=== PATIENT | female | born 1960 | race Caucasian/White ===

== ENCOUNTER 2017-12-14 18:11 | Observation (INO) ==
[2017-12-14] MEDS ORDERED: Naloxone 0.4 MG/ML INJ IVP PRN (18:28)
--- NOTE | 2017-12-14 18:55 | Internal Med History&Physical ---
Date of Encounter: 12/14/17 Time of Encounter: 18:42 Internal Medicine - H&P: HPI Chief complaint: Anemia and Planned right foot surgery Admitted From: Home Plans for Post Hospital Care: Home History of present illness: Ms. Pascual is a 57 year old female who presents with a history of heart failure, DM, Mi in 2000 with first stent placement, then 3 more stents from 2001 to 2006. She is here for blood transfusion prior to her foot surgery tomorrow with podiatry. The patient hgb was 7.7 on 12/10/2017. The plan is to transfuse 2 units PRBC's, however will get stat cbc, bmp, type and cross, and pt/inr at this time. The patient is in the room and comfortable. She indicated that she did receive cardiac clearance for this surgery on a outpatient basis and was cleared by Dr Clark. She indicated that Dr. Alcantar' AUDIO VISUAL MANAGER was aware of the clearance. If validation is needed please call Dr. Clark's office @ in am. Consult placed for podiatry, will follow the patient and all surgical aspects. The patient baseline hgb seems to be around 10.2. The last two hgb's were 7.3 and 7.7, prior to 11/23/2017 hgb was in the 10's. Hgb is 7.1, will transfuse 2 units and get iron studies. Apparently she broke her right foot 2 years ago and 2 rods were placed. Foot xray from 11/10/2015 showed: status post arthrodesis of the 1st interphalangeal joint with fracture of the arthrodesis screw securing the interphalangeal joint and subacute to chronic 4th metatarsal fracture status post ORIF. Malleable plate is approximately 5 mm off of the cortex of the metatarsals suggesting hardware failure and loosening. Pedal pulses 2+ posterior tibia and dorsalis pedis both feet. Color wnl. 12 lead ekg completed, Sinus rhythm rate 71, nonspecific ST and Twave abnormailty, it was similar to old ekgs from 07/2017. Past Med Surg Social Fam HX - Past Medical History Medical history: coronary artery disease, diabetes, GERD, hypertension, thyroid disease, other Additional medical history: dm. anastasia. home O2. gerd. CAD. PTSD. COPD. HTN. HYPOTHYROIDISM. ANEMIA. HIGH CHOLESTEROL. HEART STENTS Psychiatric history: PTSD - Past Surgical History Surgical History: hysterectomy, knee replacement, other Additional surgical history: hysterectomy. rosa. right TKR. T&A - Social History Smoking Status: Former smoker Smokeless Tobacco Status: No Alcohol use: none Drug use: none Internal Medicine - H&P: Meds Aripiprazole [Abilify] 5 mg PO DAILY 07/13/17 [History] Aspirin [Lo-Dose Aspirin EC] 81 mg PO DAILY 07/13/17 [History] Atorvastatin Calcium [Lipitor] 80 mg PO HS 07/13/17 [History] Clopidogrel [Plavix] 75 mg PO DAILY 07/13/17 [History] Ferrous Sulfate [Iron] 325 mg PO DAILY 07/13/17 [History] Furosemide [Lasix] 40 mg PO DAILY 07/13/17 [History] Gabapentin [Neurontin] 400 mg PO QID 07/13/17 [History] Levothyroxine [Synthroid] 50 mcg PO 0630 07/13/17 [History] Loratadine [Allergy Relief] 10 mg PO DAILY 07/13/17 [History] Metoprolol Succinate 25 mg PO HS 07/13/17 [History] Nitroglycerin 0.3 mg SL Q5MIN PRN 07/13/17 [History] Pantoprazole Sodium [Protonix] 40 mg PO DAILY 07/13/17 [History] Pramipexole Di-HCl [Pramipexole Dihydrochloride] 1.5 mg PO HS 07/13/17 [History] Quetiapine Fumarate [Seroquel] 200 mg PO HS 07/13/17 [History] metFORMIN [Glucophage] 500 mg PO DAILY 07/13/17 [History] Calcium Carbonate/Vitamin D3 [Calcium 500 + Vit D 200 Caplet] 1 tab PO DAILY [History] Guaifenesin [Mucus Relief] 400 mg PO BID PRN 08/04/17 [History] Isosorbide MONOnitrate (24 HR) [Imdur] 60 mg PO DAILY 08/04/17 [History] Oxycodone HCl/Acetaminophen [Percocet 5-325 mg Tablet] 1 each PO Q4-6H PRN 4 Days #20 tablet 08/04/17 [Rx] Potassium Chloride [Klor-Con 10] 10 meq PO DAILY 08/04/17 [History] Sertraline [Zoloft] 100 mg PO BID 08/04/17 [History] lamoTRIgine [Lamotrigine] 200 mg PO BID 08/04/17 [History] Albuterol Sulfate [Albuterol Inhaler] 1 puff IH Q4HR PRN 09/21/17 [History] Amoxicillin 875 mg PO BID #20 tablet 09/21/17 [Rx] Budesonide [Pulmicort] 0.5 mg IH BID 09/21/17 [History] Docusate Sodium [Dok] 50 mg PO DAILY PRN 09/21/17 [History] OxyCODONE/APAP 5/325 [Percocet 5/325 MG] 1 each PO Q6HR PRN 5 Days #15 tablet [Rx] Oxygen 3 l NS CONT 09/21/17 [History] Tiotropium [Spiriva] 2 puff IH DAILY 09/21/17 [History] 3 Allergy/AdvReac Type Severity Reaction Status Date / Time codeine AdvReac Nausea Verified 11/23/17 14:39 prednisone AdvReac Hallucinati Verified 11/23/17 14:39 ng plastic tape Allergy Rash Uncoded 08/04/17 12:33 All Systems PM: A 10-system review of systems was performed and is negative for pertinent findings except as documented above in the HPI. - Constitutional Constitutional: no chills, no fever(s), no night sweats - EENT Eyes: no change in vision, no discharge, no pain, no photophobia Ears: no ear discharge, no ear pain, no tinnitus Nose, mouth and throat: no dysphagia, no nasal discharge, no neck pain, no sore throat - Cardiovascular Cardiovascular ROS IM: no chest pain, no diaphoresis, no dyspnea, no lightheadedness, no palpitations, no syncope - Respiratory Respiratory: no cough, no dyspnea, no wheezing, no excessive phlegm production - Gastrointestinal Gastrointestinal: no abdominal pain, no diarrhea, no hematemesis, no hematochezia, no melena, no nausea, no vomiting - Genitourinary Genitourinary: no change in urinary stream, no dysuria, no flank pain, no hematuria - Musculoskeletal Musculoskeletal ROS IM: other (Right foot jonathan displacement), no numbness, no tingling - Integumentary Integumentary IM: no rash, no unusual bruising - Neurological Neurological ROS: no confusion, no convulsions, no focal weakness, no numbness, no tingling, no tremor(s) - Hematologic/Lymphatic Hematologic/Lymphatic: no easy bruising - Head Head exam: Present: atraumatic, normocephalic - Eye Eye exam: Present: normal appearance, PERRL, conjuntiva pink, sclera anicteric Pupils: Present: PERRL - Neck Neck exam general surgery: Present: supple, trachea midline. Absent: lymphadenopathy - Respiratory Respiratory exam: Present: CTAB. Absent: accessory muscle use, rales, rhonchi, wheezes - Cardiovascular Cardiovascular exam: Present: RRR, +S1, +S2. Absent: diastolic murmur, gallop, rubs, systolic murmur - GI/Abdominal GI/Abdominal exam: Present: normal bowel sounds, soft, no peritoneal signs. Absent: distended, tenderness - Extremities Exam Extremities exam: Present: warm, radial pulses palpable and symmetrical. Absent : calf tenderness, cyanotic, pedal edema - Expanded Lower Extremities Exam Ankle exam: Present: tenderness (The patient rods are displaced in her right foot. Planned repair in am (12/15/2017)) - Neurological Exam Neurological exam: Present: CN II-XII intact, oriented X3, no focal deficits. Absent: pronater drift, facial droop, speech deficit - Skin Skin exam: Present: dry, intact Internal Med - H&P Results - Labs CBC & Chem 7: 12/14/17 19:28 12/14/17 19:28 - Assessment and plan (1) Anemia Current Visit: Yes Status: Acute Assessment and plan: Etiology of anemia is unknown, will get CBC, type and screen. Added iron studies to labs. Transfuse 2 units PRBC's for hgb of 7.1 Monitor daily labs Check occult stool Qualifiers: Anemia type: unspecified type Qualified Code(s): D64.9 - Anemia, unspecified (2) Hardware failure Current Visit: Yes Status: Acute Assessment and plan: Podiatry consult ordered Planned for repair/replacement of hardware in right foot in am with Dr. Alcantar. Circulation checks (3) Diabetes mellitus Current Visit: Yes Status: Acute Assessment and plan: Accu checks ac/hs with evening meal. Blood sugars q 6 hours when npo status starts Hold metformin Goal while inpt is under 200.. Qualifiers: Diabetes mellitus type: type 2 Diabetes mellitus nursing home insulin use: without nursing home use Diabetes mellitus complication status: with unspecified complications Qualified Code(s): E11.8 - Type 2 diabetes mellitus with unspecified complications (4) Heart failure Current Visit: No Status: Acute Assessment and plan: Appears controlled. Patient reported having a echocardiogram at an outside facility when she was cleared for surgery. BNP in am Qualifiers: Heart failure type: unspecified Heart failure chronicity: unspecified Qualified Code(s): I50.9 - Heart failure, unspecified (5) Hypertension Current Visit: Yes Status: Acute Assessment and plan: Bp is controlled Gave 1 dose metoprolol 12.5 mg po tonight Resume BP medications after surgery Qualifiers: Hypertension type: essential hypertension Qualified Code(s): I10 - Essential (primary) hypertension - Time Spent With Patient Total time spent is greater than 50% in coordination of care (as documented) at patient's floor/unit and/or counseling patient: 25 - 35 minutes
[2017-12-14 19:54] LABS: Basophils % 0.2 %; Red Cell Distribution Width 17.6 % (11.5-14.5)
[2017-12-14 19:55] LABS: Eosinophils % 0.2 %; Hematocrit 23.9 % (35.3-44.9); Hemoglobin 7.1 g/dL (11.5-15.4); Immature Granulocytes % 0.2 % (0-4); Lymphocytes % 14.4 %; Mean Corpuscular HGB Conc 29.7 g/dL (31.6-35.5); Mean Corpuscular Hemoglobin 24.9 pg (28.0-33.3); Mean Corpuscular Volume 83.9 fL (83.0-100.0); Mean Platelet Volume 9.6 fL (9.4-12.4); Monocytes # 0.4 K/mcL (0.0-1.3); Neutrophils # 3.4 K/mcL (1.6-8.9); Platelet Count 249 K/mcL (140-400); Red Blood Count 2.85 M/mcL (3.82-4.97)
[2017-12-14 19:59] LABS: Lymphocytes # 0.7 K/mcL (0.6-4.6)
[2017-12-14 20:07] LABS: BUN/Creatinine Ratio 16 (6-26); Blood Urea Nitrogen 10 mg/dL (6-20); Calcium 8.8 mg/dL (8.6-10.3); Carbon Dioxide 24 mEq/L (23-29); Chloride 104 mEq/L (98-107); Glucose 196 mg/dL (70-105); Osmolality,Calculated 288 (280-300); Potassium 3.9 mEq/L (3.5-5.1); Sodium 137 mEq/L (136-145); eGFR For African Americans > 60 (> 60); eGFR For Non-African Americans > 60 (> 60)
[2017-12-14 20:09] LABS: INR 1.1; Prothrombin Time 11.8 Seconds (9.4-12.1)
--- NOTE | 2017-12-14 20:26 | Event Note ---
Date of Encounter: 12/14/17 Time of Encounter: 20:19 Patient was seen and examined. I agree with the H&P as written by Susan Lua NP Briefly the patient is with an extensive cardiac history that includes CABG as well as 4 stents, diabetes, COPD on chronic O2 who is here for blood transfusion prior to podiatry surgery involving her right big toe fractured arthrodesis. The patient's hemoglobin was noted to be around 7. Her hemoglobin was around 10-11 earlier this year. The patient had colonoscopy a year ago at the [facility] and she tells me was unremarkable. The patient says that she had clearance from cardiology for this surgery a couple weeks ago with her regular stripper opaquer, Dr. Clark, in [place]. She says Dr. Rivera's office aware that she is cleared for surgery. She had an echo done at that time which we do not have results of. She does not seem to be in heart failure currently. She seems clinically euvolemic. The patient reports chronic shortness of breath as well as fatigue and increased sleepiness. She denies any bleeding episodes. She denies any hematemesis, melena, hematochezia. A/Ox3, NAD RRR. S1, s2, No m/r/g dimished but CTAB Abdomen distended, abdominal hernia noted. Nontender No edema. 2+ DP Nonfocal Admit to hospitaltist. Hgb 7.1 here. Will give 2 units check iron studies No need to repeat and echo as it was done recently. Patient was cleared for surgery reportedly. Dr. Alcantar can request clearance if he feels the patient is not cleared for surgery but the patient states that she was cleared by her stripper opaquer EKG sliding scale insulin O2 support DVT ppx.
[2017-12-14 20:29] LABS: Anisocytosis 1+ (Not Present); Hypochromasia Present (Not Present); Platelet Estimate Normal (Normal)
[2017-12-14] MEDS ORDERED: Metoprolol XL (24 HR) Succ 25 MG TAB.ER.24H PO SCH (21:00)
[2017-12-14 21:23] LABS: % Iron Saturation 5 % (15-50); Iron 26 mcg/dL (50-170); Transferrin 342 mg/dL (203-362)
[2017-12-14] MEDS: 0.9 % Sodium Chloride 1,000 ML IVC SCH (21:25)
[2017-12-14] MEDS: Gabapentin 400 MG CAPSULE PO SCH (21:25)
[2017-12-14] MEDS: lamoTRIgine 100 MG TABLET PO SCH (21:25)
[2017-12-14] MEDS ORDERED: 0.9 % Sodium Chloride 250 ML ONE (22:08)
[2017-12-14] MEDS ORDERED: Acetaminophen 325 MG TABLET PO ONE (23:01)
[2017-12-14] MEDS: Budesonide Neb 0.5 MG/2 ML IH SCH (23:02)
[2017-12-15] MEDS ORDERED: 0.9 % Sodium Chloride 250 ML ONE (02:30)
[2017-12-15 07:09] LABS: Hematocrit 28.7 % (35.3-44.9); Hemoglobin 8.5 g/dL (11.5-15.4); Immature Granulocytes % 0.2 % (0-4); Lymphocytes # 0.5 K/mcL (0.6-4.6); Lymphocytes % 13.1 %; Mean Corpuscular HGB Conc 29.6 g/dL (31.6-35.5); Mean Corpuscular Hemoglobin 24.8 pg (28.0-33.3); Mean Corpuscular Volume 83.7 fL (83.0-100.0); Monocytes # 0.4 K/mcL (0.0-1.3); Monocytes % 9.4 %; Neutrophils # 3.2 K/mcL (1.6-8.9); Platelet Count 241 K/mcL (140-400); Red Blood Count 3.43 M/mcL (3.82-4.97); Red Cell Distribution Width 17.3 % (11.5-14.5); Segmented Neutrophils % 77.3 %
[2017-12-15 07:17] VITALS: BP 163/84
[2017-12-15 07:17] LABS: INR 1.2; Prothrombin Time 12.5 Seconds (9.4-12.1)
[2017-12-15 07:25] LABS: BUN/Creatinine Ratio 16 (6-26); Blood Urea Nitrogen 8 mg/dL (6-20); Calcium 8.6 mg/dL (8.6-10.3); Carbon Dioxide 27 mEq/L (23-29); Chloride 107 mEq/L (98-107); Glucose 117 mg/dL (70-105); Osmolality,Calculated 289 (280-300); Sodium 140 mEq/L (136-145); eGFR For African Americans > 60 (> 60); eGFR For Non-African Americans > 60 (> 60)
[2017-12-15] MEDS ORDERED: *HR* FentaNYL (PF) 100 MCG/2 ML VIAL ONE (08:05)
[2017-12-15] MEDS ORDERED: Propofol 500 MG/50 ML INFUS..BTL ONE (08:06)
--- NOTE | 2017-12-15 08:08 | Anesthesia Evaluation PreOp ---
Date of Encounter: 12/15/17 Time of Encounter: 08:06 - Past History Planned Operation: Removal Right Foot Hardware, Fusion Big Toe Joint Cardiac History: DC, HTN, Hyperlipidemia, Cardiac Surgery (CABG x 3), Cardiac Stent (stents x 4) Pulmonary History: Former smoker (quit 2012, smoked for 30 years), COPD (home O2 3L all day, 2-3 pillow orthopnea), REMA Dx (reports that she was told that she does not need CPAP) SURGICAL ATTENDANT History: Denies Any Significant HX Other Medical History: Diabetes Type II, Thyroid, GERD, Other (RLS) Anesthesia History: No Prior Anesthetic Complications, Past Anesthesia Alcohol Use: none Drug use: none Medications and Allergies Aripiprazole [Abilify] 5 mg PO DAILY 07/13/17 [History] Aspirin [Lo-Dose Aspirin EC] 81 mg PO DAILY 07/13/17 [History] Atorvastatin Calcium [Lipitor] 80 mg PO HS 07/13/17 [History] Clopidogrel [Plavix] 75 mg PO DAILY 07/13/17 [History] Ferrous Sulfate [Iron] 325 mg PO DAILY 07/13/17 [History] Furosemide [Lasix] 40 mg PO DAILY 07/13/17 [History] Gabapentin [Neurontin] 400 mg PO QID 07/13/17 [History] Levothyroxine [Synthroid] 50 mcg PO 0630 07/13/17 [History] Loratadine [Allergy Relief] 10 mg PO DAILY 07/13/17 [History] Metoprolol Succinate 25 mg PO HS 07/13/17 [History] Nitroglycerin 0.3 mg SL Q5MIN PRN 07/13/17 [History] Pantoprazole Sodium [Protonix] 40 mg PO DAILY 07/13/17 [History] Pramipexole Di-HCl [Pramipexole Dihydrochloride] 1.5 mg PO HS 07/13/17 [History] Quetiapine Fumarate [Seroquel] 200 mg PO HS 07/13/17 [History] metFORMIN [Glucophage] 500 mg PO DAILY 07/13/17 [History] Calcium Carbonate/Vitamin D3 [Calcium 500 + Vit D 200 Caplet] 1 tab PO DAILY [History] Guaifenesin [Mucus Relief] 400 mg PO BID PRN 08/04/17 [History] Isosorbide MONOnitrate (24 HR) [Imdur] 60 mg PO DAILY 08/04/17 [History] Oxycodone HCl/Acetaminophen [Percocet 5-325 mg Tablet] 1 each PO Q4-6H PRN 4 Days #20 tablet 08/04/17 [Rx] Potassium Chloride [Klor-Con 10] 10 meq PO DAILY 08/04/17 [History] Sertraline [Zoloft] 100 mg PO BID 08/04/17 [History] lamoTRIgine [Lamotrigine] 200 mg PO BID 08/04/17 [History] Albuterol Sulfate [Albuterol Inhaler] 1 puff IH Q4HR PRN 09/21/17 [History] Amoxicillin 875 mg PO BID #20 tablet 09/21/17 [Rx] Budesonide [Pulmicort] 0.5 mg IH BID 09/21/17 [History] Docusate Sodium [Dok] 50 mg PO DAILY PRN 09/21/17 [History] OxyCODONE/APAP 5/325 [Percocet 5/325 MG] 1 each PO Q6HR PRN 5 Days #15 tablet [Rx] Oxygen 3 l NS CONT 09/21/17 [History] Tiotropium [Spiriva] 2 puff IH DAILY 09/21/17 [History] Ondansetron ODT [Zofran ODT] 4 mg SL Q8HR PRN #15 tab.rapdis 12/15/17 [Rx] Oxycodone HCl/Acetaminophen [Percocet 5-325 mg Tablet] 1 each PO Q4H PRN 5 Days #30 tablet 12/15/17 [Rx] 3 Allergy/AdvReac Type Severity Reaction Status Date / Time codeine AdvReac Nausea Verified 11/23/17 14:39 prednisone AdvReac Hallucinati Verified 11/23/17 14:39 ng plastic tape Allergy Rash Uncoded 08/04/17 12:33 - Meds/Allergy Pre-op Review Medications Reviewed: Yes Allergies Reviewed: Yes Beta Blockers on Current Med List: Yes If Beta Blockers taken, Date/Time (Last Dose taken): 12/14/2017 at 2132 Anesthesia Results - Labs 12/15/17 06:35 12/15/17 06:35 Laboratory Tests 12/15/17 06:35 PT 12.5 H INR 1.2 - Imaging EKG: report reviewed (07/12/2017 SINUS RHYTHM POSSIBLE LEFT ATRIAL ENLARGEMENT NONSPECIFIC ST & T-WAVE ABNORMALITY) Additional studies: 05/28/2017 Limited Echo LVEF 60-65% mild LVH 09/11/2016 Stress no evidence of reversible perfusion defects to suggest ischemia overall LV systolic function is normal without regional wall motion abnormalities LVEF calculated to be greater than 70% 12/17/2014 [facility] CAD:3 vessel with patent mid RCA stent and patent ARCOS to LAD Anesthesia Exam Vital Signs/O2 Sat/Glucose, Most Recent Temp Pulse Resp BP Pulse Ox 98.1 F 66 20 163/84 98 12/15/17 07:13 12/15/17 07:13 12/15/17 07:13 12/15/17 07:13 12/15/17 07:13 Blood Glucose* 121 Height: 5'3''/1.6m Weight: 251 lbs/114 kg NPO (# of Hours): 8 Pain Scale: 0 Pain Scale Used: Numeric (1 - 10) - HEENT Pupil (Motor): EOMI Mallampati: II Teeth: Edentulous Denture Type: Upper: Complete, Lower: Complete Oral Opening: Greater than 3 - SURGICAL ATTENDANT LOC: Oriented SURGICAL ATTENDANT Motor: Normal RUE, Normal LUE, Normal RLE, Normal LLE, Normal Face SURGICAL ATTENDANT Sensory: Normal: RUE, LUE, Face, Deficit: RLE, LLE - Cardiac Rhythm: Regular Murmur: None - Pulmonary Breath Sounds: bilateral Clear Respiratory Effort: Symmetrical Anesthesia Assess/Plan ASA Score: 4 Modified [place] Scale for Level of Consciousness: Cooperative, oriented, and tranquil Anesthetic Plan: MAC Monitoring Plan: Standard Monitors Recovery Plan: PACU
[2017-12-15] MEDS: 0.9 % Sodium Chloride 1,000 ML IVC SCH (08:27)
--- NOTE | 2017-12-15 08:32 | History & Physical Report ---
Date of Encounter: 12/15/17 Time of Encounter: 08:25 24 Hour HP Update - Instructions Instructions: If the History and Physical is less than 30 days old and was completed prior to A.M. admission and or procedure and has NOT been updated on calendar day of procedure please complete this update prior to performing procedure. - Update Patient reports changes in Medical Condition: Yes Changes in examination, assessment, or condition: No Changes in Medication: No Preop tests/diagnostics Reviewed: Yes Surgery Remains Indicated: Yes Consent for Planned Operative Procedure(s) Verified: Yes - Attending Attestation patient had tranfusion. proceed with surgery.
--- NOTE | 2017-12-15 08:37 | Discharge Summary ---
Outpatient Proc Discharge Plan - Plan Additional Instructions: Wear cam walker boot on right foot. Ambulate as tolerated on heel. Leave bandage clean, dry and intact. Do not remove bandage. Elevation. Prescriptions given for percocet for pain as needed and as prescribed and zofran for nausea. Follow up in 1 week. Prescriptions: Ondansetron ODT [Zofran ODT] 4 mg SL Q8HR PRN #15 tab.rapdis PRN Reason: Nausea Oxycodone HCl/Acetaminophen [Primlev 5-300 mg Tablet] 1 each PO Q4H PRN 5 Days # 30 tablet PRN Reason: Pain Home Medications: Aripiprazole [Abilify] 5 mg PO DAILY 07/13/17 [History] Aspirin [Lo-Dose Aspirin EC] 81 mg PO DAILY 07/13/17 [History] Atorvastatin Calcium [Lipitor] 80 mg PO HS 07/13/17 [History] Clopidogrel [Plavix] 75 mg PO DAILY 07/13/17 [History] Ferrous Sulfate [Iron] 325 mg PO DAILY 07/13/17 [History] Furosemide [Lasix] 40 mg PO DAILY 07/13/17 [History] Gabapentin [Neurontin] 400 mg PO QID 07/13/17 [History] Levothyroxine [Synthroid] 50 mcg PO 0630 07/13/17 [History] Loratadine [Allergy Relief] 10 mg PO DAILY 07/13/17 [History] Metoprolol Succinate 25 mg PO HS 07/13/17 [History] Nitroglycerin 0.3 mg SL Q5MIN PRN 07/13/17 [History] Pantoprazole Sodium [Protonix] 40 mg PO DAILY 07/13/17 [History] Pramipexole Di-HCl [Pramipexole Dihydrochloride] 1.5 mg PO HS 07/13/17 [History] Quetiapine Fumarate [Seroquel] 200 mg PO HS 07/13/17 [History] metFORMIN [Glucophage] 500 mg PO DAILY 07/13/17 [History] Calcium Carbonate/Vitamin D3 [Calcium 500 + Vit D 200 Caplet] 1 tab PO DAILY [History] Guaifenesin [Mucus Relief] 400 mg PO BID PRN 08/04/17 [History] Isosorbide MONOnitrate (24 HR) [Imdur] 60 mg PO DAILY 08/04/17 [History] Potassium Chloride [Klor-Con 10] 10 meq PO DAILY 08/04/17 [History] Sertraline [Zoloft] 100 mg PO BID 08/04/17 [History] lamoTRIgine [Lamotrigine] 200 mg PO BID 08/04/17 [History] Albuterol Sulfate [Albuterol Inhaler] 1 puff IH Q4HR PRN 09/21/17 [History] Amoxicillin 875 mg PO BID #20 tablet 09/21/17 [Rx] Budesonide [Pulmicort] 0.5 mg IH BID 09/21/17 [History] Docusate Sodium [Dok] 50 mg PO DAILY PRN 09/21/17 [History] OxyCODONE/APAP 5/325 [Percocet 5/325 MG] 1 each PO Q6HR PRN 5 Days #15 tablet [Rx] Oxygen 3 l NS CONT 09/21/17 [History] Tiotropium [Spiriva] 2 puff IH DAILY 09/21/17 [History] Ondansetron ODT [Zofran ODT] 4 mg SL Q8HR PRN #15 tab.rapdis 12/15/17 [Rx] Oxycodone HCl/Acetaminophen [Primlev 5-300 mg Tablet] 1 each PO Q4H PRN 5 Days # 30 tablet 12/15/17 [Rx]
[2017-12-15] MEDS ORDERED: *HR* Propofol 200 MG/20 ML VIAL IVP ONE ×3 (09:46→10:24)
[2017-12-15] MEDS ORDERED: Tiotropium 18 MCG inhalation IH SCH (10:00)
[2017-12-15] MEDS: Budesonide Neb 0.5 MG/2 ML IH SCH (10:33)
--- NOTE | 2017-12-15 10:38 | Operative Note ---
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 Implants: [id number] colag screw Complications: none Anesthesia: MAC Local Anesthetics: 1% Lidocaine HCL SubQ (cc) Surgeon: Sterling Alcantar Was there an instructional assistant present: No Estimated blood loss (cc): 1 Specimen: broken screw, staple Condition: stable Disposition: PACU Procedure in Detail: Indications: 57-year-old diabetic female with previous fusion attempt of the right hallux interphalangeal joint returning to the operating room after sustaining injury and nonunion of the right hallux interphalangeal joint fusion electing to proceed with removal of hardware and revision of the interphalangeal joint fusion. Nature of procedures, risks vs benefits, potential complications and consequences of surgery discussed at length as well as course of recovery. No guarantees made as to the outcome. All questions were answered and the informed consent was signed. Patient had been transfused 2 units of blood prior to surgery due to her anemia. Patient was taken over the preoperative holding area and operating room placed on the operating room table in the supine position the right lower extremity was scrubbed prepped and draped in the usual sterile fashion. A right ankle tourniquet was applied and inflated to 250 mmHg. The following procedures then began Removal of hardware right foot. Attention was directed to the distal aspect of the patient's right hallux where a #15 blade was used to make a stab incision was deepened through blunt dissection down to the level of the screw head which was previously transfixing the interphalangeal joint. The screw was removed. An incision was made over the interphalangeal joint of the hallux using a 15 blade down to the level of the extensor tendon which was transversely tenotomized at the level of the IP joint nonunion. The staple was identified and removed. Motion at the interphalangeal joint was noted. Hallux right interphalangeal joint fusion. With the hardware removed. The rongeur was used to resect the nonunion site of the interphalangeal joint at the head of the proximal base of the distal phalanx. The piece of the screw in the proximal phalanx was visible and it was removed. A drill was used to fenestrate both ends of the fusion zone. The bone was then opposed and temporarily pinned. [id number] DPM with cancellous chips was placed into the fusion zone prior to temporarily pinning the joint. Next using standard technique two [id number] screws were utilized going from distal to proximal into the phalanx bone. C-arm was utilized to confirm position and alignment and apposition of the fusion zone. Clinically there was no gapping of the fusion zone. Hardware was within the bone and not crossing into the joint. No motion was able to be detected at the hallux interphalangeal joint. The extensor tendon was reapproximated using 3-0 Vicryl as well as the subcutaneous tissues. The skin was reapproximated at all sites using 3-0 Prolene. The patient tolerated the anesthesia and the procedure well and was escorted the recovery room with vital signs stable and vascular status intact to the right foot noted by instant capillary refill time to all digits including the right hallux. The tourniquet was deflated prior to completion of closure. Postoperative bandaging included Adaptic, 4 x 4 gauze Kerlix and an Leighton wrap. The patient tolerated the anesthesia and the procedure well. Adequate hemostasis was present at the conclusion and the patient will be return to the floor and if stable discharge to home with follow-up in 1 week.
--- NOTE | 2017-12-15 10:41 | Event Note ---
Date of Encounter: 12/15/17 Time of Encounter: 10:30 If stable on floor, patient can be discharged. no bandage changed. Follow up with me next week. Prescriptions were given. Okay to continue plavix. Ambulate in cam walker boot with weight on heel which she has done in the past.
--- NOTE | 2017-12-15 11:03 | Discharge Summary ---
Date of Encounter: 12/15/17 Time of Encounter: 11:00 Orders not resulted at time of discharge: Pending orders 12/15/17 10:44 Surgical Pathology [PTH] Routine 12/15/17 10:49 XR fluoroscopy <1 hr [XR] Routine XR foot 3V RT [XR] Routine 12/16/17 04:00 Basic Metabolic Panel AM 0400 Complete Blood Count [HEME] AM 0400 - Discharge Diagnosis (1) Hardware failure Priority: Primary Status: Acute (2) Anemia Priority: Primary Status: Acute Qualifiers: Anemia type: unspecified type Qualified Code(s): D64.9 - Anemia, unspecified Labs on day of discharge: Labs from last 24 hours 12/15/17 12/15/17 12/15/17 07:50 07:16 06:35 WBC RBC Hgb Hct MCV MCH MCHC RDW Plt Count MPV Immature Gran % Seg Neutrophils % Lymphocytes % Monocytes % Eosinophils % Basophils % Neutrophils # Lymphocytes # Monocytes # Eosinophils # Basophils # Platelet Estimate Hypochromasia Anisocytosis PT INR Sodium Potassium Chloride Carbon Dioxide BUN Creatinine Est GFR ( Amer) Est GFR (Non-Af Amer) BUN/Creatinine Ratio Glucose POC Glucose 121 H Calculated Osmolality Calcium Magnesium Iron % Saturation Transferrin Ferritin B-Natriuretic Peptide 227 H Vitamin B12 Stool Occult Blood Negative Blood Type Antibody Screen Crossmatch 12/15/17 12/15/17 12/15/17 06:35 06:35 06:35 WBC 4.1 L RBC 3.43 L Hgb 8.5 L Hct 28.7 L MCV 83.7 MCH 24.8 L MCHC 29.6 L RDW 17.3 H Plt Count 241 MPV 9.0 L Immature Gran % 0.2 Seg Neutrophils % 77.3 Lymphocytes % 13.1 Monocytes % 9.4 Eosinophils % 0.0 Basophils % 0.0 Neutrophils # 3.2 Lymphocytes # 0.5 L Monocytes # 0.4 Eosinophils # 0.0 Basophils # 0.0 Platelet Estimate Hypochromasia Anisocytosis PT 12.5 H INR 1.2 Sodium 140 Potassium 4.0 Chloride 107 Carbon Dioxide 27 BUN 8 Creatinine 0.51 L Est GFR ( Amer) > 60 Est GFR (Non-Af Amer) > 60 BUN/Creatinine Ratio 16 Glucose 117 H POC Glucose Calculated Osmolality 289 Calcium 8.6 Magnesium 2.0 Iron % Saturation Transferrin Ferritin B-Natriuretic Peptide Vitamin B12 Stool Occult Blood Blood Type Antibody Screen Crossmatch 12/14/17 12/14/17 12/14/17 20:47 20:47 20:47 WBC RBC Hgb Hct MCV MCH MCHC RDW Plt Count MPV Immature Gran % Seg Neutrophils % Lymphocytes % Monocytes % Eosinophils % Basophils % Neutrophils # Lymphocytes # Monocytes # Eosinophils # Basophils # Platelet Estimate Hypochromasia Anisocytosis PT INR Sodium Potassium Chloride Carbon Dioxide BUN Creatinine Est GFR ( Amer) Est GFR (Non-Af Amer) BUN/Creatinine Ratio Glucose POC Glucose Calculated Osmolality Calcium Magnesium Iron 26 L % Saturation 5 L Transferrin 342 Ferritin 24 B-Natriuretic Peptide Vitamin B12 564 Stool Occult Blood Blood Type Antibody Screen Crossmatch 12/14/17 12/14/17 12/14/17 19:48 19:28 19:28 WBC RBC Hgb Hct MCV MCH MCHC RDW Plt Count MPV Immature Gran % Seg Neutrophils % Lymphocytes % Monocytes % Eosinophils % Basophils % Neutrophils # Lymphocytes # Monocytes # Eosinophils # Basophils # Platelet Estimate Hypochromasia Anisocytosis PT INR Sodium 137 Potassium 3.9 Chloride 104 Carbon Dioxide 24 BUN 10 Creatinine 0.64 Est GFR ( Amer) > 60 Est GFR (Non-Af Amer) > 60 BUN/Creatinine Ratio 16 Glucose 196 H POC Glucose 203 H Calculated Osmolality 288 Calcium 8.8 Magnesium Iron % Saturation Transferrin Ferritin B-Natriuretic Peptide Vitamin B12 Stool Occult Blood Blood Type A NEGATIVE Antibody Screen NEGATIVE Crossmatch See Detail 12/14/17 12/14/17 19:28 19:28 WBC 4.5 RBC 2.85 L Hgb 7.1 L Hct 23.9 L MCV 83.9 MCH 24.9 L MCHC 29.7 L RDW 17.6 H Plt Count 249 MPV 9.6 Immature Gran % 0.2 Seg Neutrophils % 76.0 Lymphocytes % 14.4 Monocytes % 9.0 Eosinophils % 0.2 Basophils % 0.2 Neutrophils # 3.4 Lymphocytes # 0.7 Monocytes # 0.4 Eosinophils # 0.0 Basophils # 0.0 Platelet Estimate Normal Hypochromasia Present A Anisocytosis 1+ A PT 11.8 INR 1.1 Sodium Potassium Chloride Carbon Dioxide BUN Creatinine Est GFR ( Amer) Est GFR (Non-Af Amer) BUN/Creatinine Ratio Glucose POC Glucose Calculated Osmolality Calcium Magnesium Iron % Saturation Transferrin Ferritin B-Natriuretic Peptide Vitamin B12 Stool Occult Blood Blood Type Antibody Screen Crossmatch - Impressions ITS Impressions Echocardiogram 12/14/17 00:00 Impressions: LVEF 60%. Mild left ventricular diastolic dysfunction. Normal right ventricular structure and function. Mild mitral regurgitation. Mild tricuspid regurgitation. Mild pulmonic regurgitation. No pulmonary hypertension. Left Ventricular Wall Motion: Rest Echo Findings All wall segments showed normal motion. Findings: Study Quality * Technically adequate exam. ECG Findings * Normal sinus rhythm. Left Ventricle * Normal LV chamber size, wall thickness and function. * Mild left ventricular diastolic dysfunction. * LVEF 60%. Right Ventricle * Normal right ventricular structure and function. Left Atrium * Mildly dilated left atrium. Right Atrium * Mildly dilated right atrium. Aortic Valve * No aortic regurgitation. * Aortic valve not well visualized. * No aortic stenosis. Mitral Valve * Normal mitral valve structure. * No mitral stenosis. * Mild mitral regurgitation. Tricuspid Valve * Tricuspid valve not well visualized. * Mild tricuspid regurgitation. Pulmonic Valve * Pulmonic valve is not well visualized. * No pulmonic stenosis. * Mild pulmonic regurgitation. Pulmonary Artery * Pulmonary artery not well visualized. Aorta * Normally sized aortic root. Pericardium * There is no pericardial effusion present. Interatrial Septum * Interatrial septum not well evaluated. IVC * The IVC is not well evaluated. - Hospital Course Hospital course: Ms. Pascual is a 57 year old female - Time Spent with Patient Total time spent providing and/or coordinating discharge services: - Discharge Medications Prescriptions: Ondansetron ODT [Zofran ODT] 4 mg SL Q8HR PRN #15 tab.rapdis PRN Reason: Nausea Oxycodone HCl/Acetaminophen [Primlev 5-300 mg Tablet] 1 each PO Q4H PRN 5 Days # 30 tablet PRN Reason: Pain Home Medications: Aripiprazole [Abilify] 5 mg PO DAILY 07/13/17 [History] Aspirin [Lo-Dose Aspirin EC] 81 mg PO DAILY 07/13/17 [History] Atorvastatin Calcium [Lipitor] 80 mg PO HS 07/13/17 [History] Clopidogrel [Plavix] 75 mg PO DAILY 07/13/17 [History] Ferrous Sulfate [Iron] 325 mg PO DAILY 07/13/17 [History] Furosemide [Lasix] 40 mg PO DAILY 07/13/17 [History] Gabapentin [Neurontin] 400 mg PO QID 07/13/17 [History] Levothyroxine [Synthroid] 50 mcg PO 0630 07/13/17 [History] Loratadine [Allergy Relief] 10 mg PO DAILY 07/13/17 [History] Metoprolol Succinate 25 mg PO HS 07/13/17 [History] Nitroglycerin 0.3 mg SL Q5MIN PRN 07/13/17 [History] Pantoprazole Sodium [Protonix] 40 mg PO DAILY 07/13/17 [History] Pramipexole Di-HCl [Pramipexole Dihydrochloride] 1.5 mg PO HS 07/13/17 [History] Quetiapine Fumarate [Seroquel] 200 mg PO HS 07/13/17 [History] metFORMIN [Glucophage] 500 mg PO DAILY 07/13/17 [History] Calcium Carbonate/Vitamin D3 [Calcium 500 + Vit D 200 Caplet] 1 tab PO DAILY [History] Guaifenesin [Mucus Relief] 400 mg PO BID PRN 08/04/17 [History] Isosorbide MONOnitrate (24 HR) [Imdur] 60 mg PO DAILY 08/04/17 [History] Potassium Chloride [Klor-Con 10] 10 meq PO DAILY 08/04/17 [History] Sertraline [Zoloft] 100 mg PO BID 08/04/17 [History] lamoTRIgine [Lamotrigine] 200 mg PO BID 08/04/17 [History] Albuterol Sulfate [Albuterol Inhaler] 1 puff IH Q4HR PRN 09/21/17 [History] Amoxicillin 875 mg PO BID #20 tablet 09/21/17 [Rx] Budesonide [Pulmicort] 0.5 mg IH BID 09/21/17 [History] Docusate Sodium [Dok] 50 mg PO DAILY PRN 09/21/17 [History] OxyCODONE/APAP 5/325 [Percocet 5/325 MG] 1 each PO Q6HR PRN 5 Days #15 tablet [Rx] Oxygen 3 l NS CONT 09/21/17 [History] Tiotropium [Spiriva] 2 puff IH DAILY 09/21/17 [History] Ondansetron ODT [Zofran ODT] 4 mg SL Q8HR PRN #15 tab.rapdis 12/15/17 [Rx] Oxycodone HCl/Acetaminophen [Primlev 5-300 mg Tablet] 1 each PO Q4H PRN 5 Days # 30 tablet 12/15/17 [Rx] Allergies/Adverse Reactions: 3 Allergy/AdvReac Type Severity Reaction Status Date / Time codeine AdvReac Nausea Verified 11/23/17 14:39 prednisone AdvReac Hallucinati Verified 11/23/17 14:39 ng plastic tape Allergy Rash Uncoded 08/04/17 12:33 Date of admission: 12/14/17 18:56 Primary care physician: PCP MARIA T Consults: 12/14/17 20:14 Consult to Podiatry [CONS] Routine Consulting Provider: Podiatry [facility] Reason for Consult: Planned foot surgery in am. Patient was sent to [facility] for transfusion by podiatry. Time Notified: 20:16 Call Completed: No - Patient Status Disposition: Home, Self-Care Condition: Good Functional capacity at discharge: uses cane/walker - Discharge Instructions [facility] With[facility] Care Provider[facility] - Additional Instructions: You were admitted to the hospital and received blood products prior to your procedure. After procedure, you are to wear the cam walker boot on right foot. Ambulate as tolerated on heel using walker or other assistive device. Leave bandage clean, dry and intact. Do not remove bandage. Elevation. Prescriptions given for percocet for pain as needed and as prescribed and zofran for nausea. Follow up in 1 week. - Diet and Activity Activity: ambulate only with your walker, other (in cam walker boot) Diet: diabetic diet, low fat, low cholesterol - VTE Documentation of Mechanical Device: Venous foot pump, device
[2017-12-15] MEDS ORDERED: Lidocaine 1% 20 ML MDV ONE (11:08)
[2017-12-15] MEDS ORDERED: *HR* OxyCODONE Immed Rel 5 MG TABLET PO PRN (11:33)
[2017-12-15] MEDS: Gabapentin 400 MG CAPSULE PO SCH ×2 (11:43→11:48)
[2017-12-15] MEDS: lamoTRIgine 100 MG TABLET PO SCH (11:43)
--- NOTE | 2017-12-15 19:40 | Electrocardiograph Report ---
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
--- NOTE | 2017-12-15 19:42 | Electrocardiograph Report ---
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
== END 2017-12-15 16:02 | disposition home or self-care (01) ==
LOC: SAMDAY 18:11 → 3NENU 18:11
PROVIDERS: ADMIT Family Medicine; ATTEND Family Medicine